=== PATIENT | female | born 1985 | race Caucasian/White ===

== ENCOUNTER → 2021-01-18 | Outpatient (CLI) | payer BC | LOC: MC.RAD 08:29 | DX: Z12.31 Encounter for screening mammogram for malignant neoplasm of breast (principal) ==

== ENCOUNTER → 2021-01-25 | Outpatient (CLI) | payer BC | LOC: MC.RAD 12:53 | DX: N64.9 Disorder of breast, unspecified (principal); N63.20 Unspecified lump in the left breast, unspecified quadrant; N63.10 Unspecified lump in the right breast, unspecified quadrant; R59.0 Localized enlarged lymph nodes ==

== ENCOUNTER → 2021-02-08 | Outpatient (CLI) | payer BC | LOC: MC.RAD 09:52 | DX: N60.02 Solitary cyst of left breast (principal) ==